=== PATIENT | female | born 1965 | race Caucasian/White ===

== ENCOUNTER → 2024-12-05 13:03 | Outpatient (BNVA) | payer MEDICAID, SELFPAY | PROVIDERS: Visit Provider Dermatology | DX: C44.729 Squamous cell carcinoma of skin of left lower limb, including hip (principal) | CPT/HCPCS: 12034; 17313 ==

== ENCOUNTER → 2024-12-15 11:16 | Outpatient (BNVA) | payer MEDICAID, SELFPAY | PROVIDERS: Visit Provider Dermatology | DX: C44.729 Squamous cell carcinoma of skin of left lower limb, including hip (principal) | CPT/HCPCS: 99213 ==

== ENCOUNTER 2025-01-15 12:53 | Oncology outpatient (recurring) (ONCR) | payer MEDICAID, SELFPAY ==
--- NOTE | 2024-12-25 15:37 | N.ONRAD NP_ITS ---
Radiation Oncology New Patient Visit Patient: Shawnee Gonzalez MR#: [id number] : 1965 Age: 59 Sex: Female Dictated by: Dr. Ave Conde Date of Service: 12/25/2024 Referring Physician(s) : Dr. 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 Chief Complaint / History of Present Illness: Patient is a 59-year-old lady who had a squamous of carcinoma on her left morales recently removed by Mohs procedures on 11/23/2024. 3 separate attempts were made to obtain clear margins and a deep margin remained. She is seen today in consultation to discuss postoperative radiation for incomplete resection. Current Medications: Clopidogrel Oral Lisinopril oral Metoprolol tartrate Allergies: No known allergies. Medical History: No history of collagen vascular disease. No previous radiation therapy. DJD hypertension Surgical History: Skin cancer removal Family History: Social History: Current Complaints / Review of Systems: . Vital Signs: Performed on 12/25/2024 3:16 PM BMI - 22.589 kg/m2, Height - 64 in, Weight - 131.6 lbs, Temperature - 98.1 f, Pulse - 61 /min, Respiration - 17 /min, O2 Sat - 96 %, Pain - 0, Fatigue - 0 and BP - 153/ 81 mm(hg)(high/). Physical Exam: General: Patient is sitting comfortably in the chair. She is alone today. HEENT: Normocephalic atraumatic. Pupils are equal, sclera clear, extraocular muscles intact Pulmonary: Respiratory rate regular nonlabored Cardiovascular: Regular rate and rhythm Abdomen: Flat with minimal adipose tissue Extremities: The left morales has 3 Band-Aids across the incision. These were removed. There is quite a bit of indent from the resection. She still has sutures in place at the top and bottom. The central portion where the graft was appears to be darkened and scab-like. Neurological: Alert and orient x 3. Gait and speech within normal limits Psych: Affect appropriate for current situation Performance Status: 100 Pathology: Squamous cell carcinoma Lab: Imaging: See HPI Impression: Squamous of carcinoma of the morales status post Mohs procedure with positive deep margin Plan: I reviewed with her at this time that we would start the radiation once the area had completely healed. We talked about how if we started it before it was healed it would be frozen in time during the course of treatment and that would take substantially longer to heal down the line. We talked about having her return in 2 weeks to look at the area and see if she is ready to start at that point. We did take photos today so we can compare those. I also discussed her case with medical oncology and as she does not have any satellite lesions and this is not a metastatic lesion nor does she have any distant spread she is not a candidate or does not qualify nor need any systemic therapy at this point. We have given her appointment to return in 2 weeks and we will see how she is healed at that point so that we can start her treatment subsequently Signed by: 12/25/2024 3:36:49 PM <<Signature on File>> Time spent with patient:35 CPT Code: CPT Code:
--- NOTE | 2025-01-15 13:20 | ONCRAD EPV_ITS ---
Radiation Oncology Established Patient Visit Patient: Shawnee Gonzalez [id number] : 1965 Age: 59 Sex: Female Dictated by: Dr. Ave Conde Date of Service: 01/15/2025 Referring Physician(s) : Dr. Cem Hernandez Diagnosis: Squamous of carcinoma left morales Radiotherapy to Date: Currently waiting for the area to heal Current History: She does say that is feeling better. She is continuing to use her ointment and keep it clean and wrapped. She sees dermatology this afternoon. Current Medications: Clopidogrel Oral Lisinopril oral Metoprolol tartrate Allergies: No known allergies Current Complaints / Review of Systems: . Vital Signs: Performed on 01/15/2025 1:09 PM BMI - 23.379 kg/m2 (high), Height - 64 in, Weight - 136.2 lbs, Temperature - 98 f, Pulse - 63 /min, Respiration - 18 /min, O2 Sat - 96 %, Pain - 5, Fatigue - 0 and BP - 169/ 95 mm(hg)(high). Physical Exam: General: Alert and oriented x 3. No acute distress. Skin: The skin on her left morales is now pink around the scab area that measures approximately 1-1/2 x 0.5 cm. I believe this where the graft was previously. The skin surrounding this is just pinker that her normal martin skin. There does not appear to be drainage or irritation or signs of infection. Performance Status: 100 Lab: None pending. Pathology: Imaging: See HPI Impression: Squamous cell carcinoma of the skin with positive deep margin Plan: At this point she will visit with dermatology today. It appears to be healing appropriately. It may still take another few weeks and we will have her return in 2 weeks to see how she is healed at that point we can proceed with simulation to begin her treatment shortly thereafter. Signed by: 01/15/2025 1:19:05 PM <<Signature on File>> Time spent with patient: 25 CPT Code: CPT Code:
== END 2025-01-19 23:59 | disposition home or self-care (01) ==
PROVIDERS: Visit Provider Radiology Radiation Oncology
DX: C44.729 Squamous cell carcinoma of skin of left lower limb, including hip (principal)
CPT/HCPCS: 99213

== ENCOUNTER → 2025-02-19 13:04 | Outpatient (BNVA) | payer MEDICAID, SELFPAY | PROVIDERS: Visit Provider Dermatology | DX: Z48.817 Encounter for surgical aftercare following surgery on the skin and subcutaneous tissue (principal) | CPT/HCPCS: 99212 ==